=== PATIENT | female | born 1985 | race Caucasian/White ===

== ENCOUNTER 2018-05-23 12:02 | Emergency (ER) | payer SELFPAY ==
[~2018-05-23] VITALS: Ht 162.6 cm; Wt 80.0 kg
[2018-05-23 12:30] LABS: HEMATOCRIT 37.7 % (36.0-46.0); HEMOGLOBIN 12.6 G/DL (11.9-15.5); MCH 27.6 PG (29.0-34.0); MCHC 33.4 G/DL (30.0-36.0); MCV 82.7 FL (83-99); PLATELET COUNT 254 K/uL (156-360); RBC DIS.WIDTH-CV 14.9 % (11.8-14.6); RBC DIS.WIDTH-SD 45.1 % (39-53); RED BLOOD COUNT 4.56 M/uL (3.80-5.20); WHITE BLOOD COUNT 13.8 K/uL (4.1-10.2)
[2018-05-23 12:33] LABS: APPEARANCE SL.HAZY ((CLEAR)); BILIRUBIN NEGATIVE; BLOOD NEGATIVE; COLOR YELLOW ((YELLOW)); GLUCOSE (STRIP) NEGATIVE; KETONES NEGATIVE; LEUKOCYTES SMALL; NITRITE NEGATIVE; PROTEIN (STRIP) NEGATIVE; SPECIFIC GRAVITY 1.025 (1.000-1.030); UROBILINOGEN 0.2 MG/DL (0.2-1.0)
[2018-05-23 12:48] LABS: ALBUMIN 4.2 g/dL (3.2-4.8); CHLORIDE 104 mEq/L (99-109); SODIUM 135 mEq/L (136-147)
[2018-05-23 12:50] LABS: BACTERIA RARE /HPF; EPITHELIAL CELLS 4+ /HPF; MUCUS 1+ /LPF; RED BLOOD CELLS 0-5 /HPF (0-5); UCUL ADDED? NO; WHITE BLOOD CELLS 0-5 /HPF (0-5)
[2018-05-23 12:51] LABS: GLUCOSE 101 mg/dL (70-99); TOTAL PROTEIN 7.6 g/dL (6.4-8.3)
[2018-05-23 12:53] LABS: TOTAL BILIRUBIN 0.2 mg/dL (0.0-1.0)
[2018-05-23 12:54] LABS: ALKALINE PHOSPHATASE 89 IU/L (3-129); CREATININE 0.7 mg/dL (0.6-1.3)
[2018-05-23 12:55] LABS: GFR ESTIMATE (CALCULATED) > 59 mL/min/; UREA NITROGEN (BUN) 7 mg/dL (9-23)
[2018-05-23 12:56] LABS: AST (GOT) 16 IU/L (2-34)
[2018-05-23 13:15] LABS: LIPASE 27 U/L (1.0-51.0)
[2018-05-23 13:23] LABS: ALT (GPT) 16 IU/L (3-49)
[2018-05-23 15:17] VITALS: BP 132/83
== END 2018-05-23 15:14 | disposition home or self-care (01) ==
LOC: EME 12:02
DX: O26.891 Other specified pregnancy related conditions, first trimester (principal); R10.31 Right lower quadrant pain; R11.0 Nausea; Z3A.08 8 weeks gestation of pregnancy; Z32.01 Encounter for pregnancy test, result positive
CPT/HCPCS: 76801; 80053; 81003; 83690; 84702; 85027; 87086; 99281; 99284